=== PATIENT | male | born 1975 | race Caucasian/White ===

== ENCOUNTER 2016-04-28 20:56 | Emergency (ER) | payer SELFPAY ==
[~2016-04-28] VITALS: Ht 185.4 cm; Wt 77.3 kg
[2016-04-28 20:56] VITALS: BP 135/87; PULSE 68; RESP 15; O2SAT 100
[2016-04-28 21:11] VITALS: BP 116/77; PULSE 72; RESP 15; O2SAT 96
--- NOTE | 2016-04-28 21:28 | ED.REPORT ---
HPI-Chest Pain 40 and Over Date of Service Apr 28, 2016 ED Provider: Marcus Brodie Patient is a 40 year old male who presents to the ED complaining of chest pain onset during an argument with his partner just prior to arrival. During his episode of chest pain he lost consciousness, slumped to his knees and then to his side, and was not verbally responsive despite moving his mouth to form words. Per partner, he laid down with his eyes open and then came to shortly after. Associated symptoms include dizziness, lightheadedness, diaphoresis, tingling in his L middle finger, and SOB. He denies nausea, vomiting, coughing, hematemesis, hematochezia, or any other symptoms. His symptoms have since resolved. He has never had similar symptoms. He had a fever and vomiting a few days ago. Nursing Notes Stated Complaint: CHEST PAIN/LT ARM PAIN Chief Complaint: Chest Pain Nursing Notes Reviewed: Yes Allergies: Coded Allergies: No Known Allergies (Verified Allergy, Unknown, 04/28/16) Scheduled PRN Naproxen (Naprosyn) 500 Mg Tablet 500 MG PO BID PRN PRN For Pain General Time Seen by MD: 21:27 Chief Complaint Chest pain Hx Obtained From: Patient, Spouse Arrived By: Walk-in Sudden in Onset?: Yes Onset Occurred: 46 - 59 minutes ago Similar Sx Previous: No Risk Factors )( CAD Risk Stratification No Diabetes mellitus, No Hyperlipidemia, No Hypertension, No Smoking Risk factors reviewed )( TAD Risk Stratification No Hypertension, No Risk factors reviewed )( PE Risk Stratification No Previous DVT, No Previous PE, No Surgery Last 60 Days, No Trauma Risk factors reviewed Past Medical History Past Medical History 2009 Past Surgical History none Family History n/a Smoking History Former Smoker Social History Alcohol Use: "Social" Drug Use: Denies drug use, THC Other Social History: Smokeless tobacco Occupation auto shop Ambulatory Status Independent Review of Systems +Tingling sensation Respiratory: Reports: Shortness of breath, Denies: Non-productive cough Cardiovascular: Reports: Chest pain GI: Denies: Hematemesis, Hematochezia, Nausea, Vomiting Skin: Reports Diaphoresis Neurologic: Reports: Change LOC, Dizziness, Lightheaded Complete sys rev & neg: except as marked. Physical Exam Initial Vital Signs Vital Signs (First) Date Time Temp Pulse Resp B/P Pulse Ox O2 Delivery O2 Flow Rate FiO2 04/28/16 20:56 36.2 68 15 135/87 100 Room Air Initial VS: Reviewed Head / Eyes: Atraumatic, Normocephalic Neurologic: Alert, Oriented Psychiatric: Mood/affect normal, Behavior normal, Normal thought content General/Constitutional: Awake, Alert, Well developed Behavior: Positive: Anxious Respiratory / Chest: Breath sounds NL, Breath sounds = bilat, No respiratory distress Heart Sounds / Murmur: Positive: Murmur present... 2/6 holosystolic murmur Abdomen: Soft, Non-tender Neck: No JVD Color / Condition: Positive: Diaphoresis present Interpretation & Diagnostics Lab Results Interpretation Result Diagram: 04/28/16 2210 04/28/16 2210 Test 04/28/16 22:10 04/28/16 23:30 White Blood Count 5.6th/mm3 (3.8-10.1) Red Blood Count 4.28mil/mm3 (4.40-5.80) Hemoglobin 13.0g/dL (13.8-17.2) Hematocrit 38.8% (41.0-50.0) Mean Corpuscular Volume 90.7fL (81-100) Mean Corpuscular Hemoglobin 30.4pg (27.0-35.0) Mean Corpuscular Hemoglobin Concent 33.5% (32.0-37.0) Red Cell Distribution Width 12.4% (12.3-15.4) Platelet Count 181bil/L (150-400) Neutrophils (%) (Auto) 51.2% (40-74) Lymphocytes (%) (Auto) 34.0% (14-46) Monocytes (%) (Auto) 11.0% (4-12) Eosinophils (%) (Auto) 3.4% (0-5) Basophils (%) (Auto) 0.2% (0-3) Sodium Level 140mEq/L (134-144) Potassium Level 4.0mEq/L (3.5-5.2) Chloride Level 103mEq/L (97-108) Carbon Dioxide Level 24mmol/L (18-29) Blood Urea Nitrogen 11mg/dL (6-24) Creatinine 0.60mg/dL (0.76-1.27) Estimat Glomerular Filtration Rate 158mL/min (>59) Glucose Level 103mg/dL (60-99) Calcium Level 8.2mg/dL (8.5-10.1) Magnesium Level 2.0mg/dL (1.6-2.6) Total Bilirubin 0.2mg/dL (0.0-1.2) Aspartate Amino Transf (AST/SGOT) 26U/L (0-50) Alanine Aminotransferase (ALT/SGPT) 18U/L (0-44) Alkaline Phosphatase 48U/L (25-150) Total Protein 6.2g/dL (6.4-8.4) Albumin 4.0g/dL (3.4-5.0) Troponin T 0.010ug/L (0.0-0.011) ECG Interpretation ECG Interpretation: sinus rate [address] left atrial enlargement ST elevation, probable normal early repol pattern Time: 21:22 Interpreted by: ED physician ECG Interpretation: Sinus rate 64 unchanged from prior Time: 23:42 Interpreted by: ED physician X-Ray Chest Interpretation Chest Xray Interpretation: IMPRESSION: 1. No acute cardiopulmonary disease. Dictated by: Vipin Mcdonough M.D. on 04/28/2016 at 22:20 Approved by: Vipin Mcdonough M.D. on 04/28/2016 at 22:22 View: Portable, 1 view Interpretation / Wet Read by: Interpret - Radiologist Re-Eval/Medical Decision Med Decision/Clinical Course 40-year-old experience chest pain and possibly syncopal episode in the course of a verbal argument with his significant other. He is completely back to baseline now. Cardiac evaluation is negative with enzymes negative 2. EKG negative 2 with baseline early re-pole morphology unchanged. He appears to have hyperventilated himself into a near syncopal stay in the setting of an emotional upset. He is discharged in stable condition for follow-up with PCP. Prompt return if repetitive episodes or if worse. Time of Eval: 00:40 Patient Status: Condition improved Re-Evaluation/Progress Note: Discussed lab and imaging results and plan for discharge. Patient understands and agrees with plan. All questions addressed at this time. Counseled Regarding: Diagnosis, Lab results, Need for follow-up, When/why to return to ED Discharge & Departure Shift Change Sign-Out Response to Therapy: Improved Primary Impression: Non-cardiac chest pain Additional Impressions: Syncope Hyperventilation Disposition: Home Discharge Condition All VS Reviewed: Yes Condition: Stable Patient Instructions: Chest Pain (ED) Additional Instructions: We find no evidence of cardiac disease accounting for your pain tonight. I do not believe that varus stress accounts for her pain, but it may have much to do with the rest of your symptoms, and response to the pain. Follow-up with your doctor in the office. You may follow up at [facility] residency clinic if needed. Naprosyn twice daily if needed for pain. Return if any immediate issues. Referrals: [facility] Res[facility] Scribe Attestation Portions of this note were transcribed by Letty Earl. I, Dr. Velazquez personally performed the history, physical exam and medical decision-making; I reviewed and confirmed the accuracy of the information in the transcribed note. Signed by: Letty Earl 04/29/16, 0042 copies to: [facility] Alejandro Velazquez MD Apr 28, 2016 21:28 LETTY EARL Apr 28, 2016 21:42
[2016-04-28 22:18] LABS: BASOPHILS % (AUTO) 0.2 % (0-3); EOSINOPHILS % (AUTO) 3.4 % (0-5); Mean Corpuscular Hemoglobin 30.4 pg (27.0-35.0); Mean Corpuscular Volume 90.7 fL (81-100); NEUTROPHILS % (AUTO) 51.2 % (40-74); Platelet Count 181 bil/L (150-400)
--- NOTE | 2016-04-28 22:23 | DRSVH ---
PROCEDURE: X-RAY CHEST ONE VIEW, PORTABLE ([id number]) INDICATIONS: CHEST PAIN TECHNIQUE: One view of the chest was acquired. COMPARISON: None. FINDINGS: Surgical changes and devices: None. Lungs and pleura: No pleural effusions or pneumothorax. Lungs are clear. Mediastinum: Mediastinal contours appear normal. Heart size is normal. Bones and chest wall: No suspicious bony lesions. Overlying soft tissues appear unremarkable. IMPRESSION: 1. No acute cardiopulmonary disease. Dictated by: Vipin Mcdonough M.D. on 04/28/2016 at 22:20 Approved by: Vipin Mcdonough M.D. on 04/28/2016 at 22:22
[2016-04-28 22:40] LABS: TROPONIN T 0.01 ug/L (0.0-0.011)
[2016-04-29] MEDS ORDERED: NAPR500T PO (00:35)
[2016-04-29 00:59] VITALS: BP 130/74; RESP 18; O2SAT 96
== END 2016-04-29 01:00 | disposition home or self-care (01) ==
LOC: SED 20:56
DX: R07.89 Other chest pain (principal); R55 Syncope and collapse; R06.4 Hyperventilation; R42 Dizziness and giddiness; R61 Generalized hyperhidrosis; R20.2 Paresthesia of skin; R06.02 Shortness of breath; Z87.891 Personal history of nicotine dependence